=== PATIENT | female | born 1955 | race Two or more races ===

== ENCOUNTER → 2018-01-23 | Outpatient (CLI) | payer MEDICARE, MEDICAID ==
[2015-04-23 06:03] VITALS: BP 138/77
[~2018-01-23] MED LIST: BUSP15TA PO; DOXE25CA PO; DULO30CA2 PO; DULO60CA6 PO; INSU100C4 SQ; INSU100I13 SQ; LISI2.5T PO; LORA0.5T PO; MULT-317 PO; NORE5TAB3 PO; SITA1TAB11 PO; [UNRECOGNIZED DRUG - OTHER]
--- NOTE | 2018-01-23 16:28 | KCIC ---
EXAM: Bilateral digital screening mammogram with tomosynthesis. HISTORY: 62-year-old female presents for screening mammography. TECHNIQUE: Full-field digital craniocaudal and mediolateral oblique 2D and 3D tomosynthesis images of both breasts are obtained for evaluation. Computer aided detection with [employer] software version 9.3 was applied. COMPARISON: 03/09/2015 BREAST PARENCHYMAL DENSITY: Level B - Scattered fibroglandular densities. FINDINGS: There is no new suspicious mass, microcalcification or region of architectural distortion. There is stable areas of nodularity within both breasts when allowing for differences in imaging technique. There are benign calcifications. IMPRESSION: BI-RADS Category 2: Benign finding(s). RECOMMENDATION: Annual mammography is recommended. If your mammogram demonstrates that you have dense breast tissue, which could hide abnormalities, and if you have other risk factors for breast cancer that have been identified, you might benefit from supplemental screening tests that may be suggested by your ordering physician. Dense breast tissue, in and of itself, is a relatively common condition. This information is not provided to cause undue concern, but rather to raise your awareness and to promote discussion with your physician regarding the presence of other risk factors, in addition to dense breast tissue. A report of your mammography results will be sent to you and your physician. You should contact your physician if you have any questions or concerns regarding this report. Mammography is a sensitive method for finding small breast cancers, but it does not detect them all and is not a substitute for careful clinical examination. A negative mammogram does not negate a clinically suspicious finding and should not result in delay in biopsying a clinically suspicious abnormality. PQRS compliance statement - Patient information was entered into a reminder system with a target due date for the next mammogram. "Our facility is accredited by the [employer] Mammography Program." Electronically signed by: Heather Jamison MD (01/23/2018 4:26 PM) [facility] [id number]
== END | disposition home or self-care (01) ==
LOC: KCIC MAMMO 15:00
PROVIDERS: ATTEND Family Medicine
DX: Z12.31 Encounter for screening mammogram for malignant neoplasm of breast (principal)
CPT/HCPCS: 77063; 77067

== ENCOUNTER → 2018-05-28 | Outpatient (CLI) | payer MEDICARE, MEDICAID ==
[2015-04-23 06:03] VITALS: BP 138/77
--- NOTE | 2018-05-28 11:24 | KCIC ---
EXAM: Brain MRI without contrast. HISTORY: Vertigo. Fall. TECHNIQUE: Multiplanar, multisequence magnetic resonance imaging of the brain was performed without contrast. COMPARISON: None. FINDINGS: There is no restricted diffusion to suggest acute or subacute infarction. There is no susceptibility effect to suggest hemorrhage. There is no mass effect or midline shift. There is no hydrocephalus. There are few scattered foci of signal change within the cerebral white matter and jaqueline, a nonspecific finding likely due to chronic small vessel disease. The orbits, paranasal sinuses mastoid air cells are unremarkable. There are normal flow voids within the cerebral vessels. No calvarial lesion is seen IMPRESSION: 1. No acute intercranial finding. 2. Few scattered nonspecific foci of signal change within the cerebral white matter, most commonly due to chronic small vessel disease in patients of this age. Electronically signed by: Heather Jamison MD (05/28/2018 11:19 AM) [id number]
== END | disposition home or self-care (01) ==
LOC: KCIC MRI 10:11
PROVIDERS: ATTEND Psychiatry & Neurology Neurology with Special Qualifications in Child Neurology
DX: I73.9 Peripheral vascular disease, unspecified (principal); R90.82 White matter disease, unspecified
CPT/HCPCS: 70551